=== PATIENT | male | born 1990 | race Caucasian/White ===

== ENCOUNTER 2017-09-21 22:00 | Emergency (ER) | payer OTHER ==
[2017-09-21] MEDS ORDERED: KETOROLAC 30 MG/ML INJ ONE (23:29)
--- NOTE | 2017-09-21 23:47 | EDPHYS ---
Physician Documentation [facility] Name: Bora Nguyen Age: 27 yrs Sex: Male : 1990 Arrival Date: 09/21/2017 Time: 22:01 Bed 27 Private MD: ED Physician Al Mackey HPI: 09/21 22:54 This 27 yrs old Male presents to ER via Ambulatory with complaints of Chest snw Wall Pain. 22:54 Onset: The symptoms/episode began/occurred suddenly, yesterday. Associated signs and snw symptoms: The patient has no apparent associated signs or symptoms. Modifying factors: the patient symptoms are aggravated by movement, heavy lifting. The patient has experienced similar episodes in the past, multiple times. The patient has been recently seen by a physician:. no nausea, syncope, shortness of breath, family history of heart disease. One with aortic stenosis. Historical: - Allergies: 22:12 Peanut; lk1 - PMHx: 22:12 None; lk1 - PSHx: 22:12 None; lk1 - Immunization history:: Adult Immunizations up to date. - Social history:: Smoking status: Patient/guardian denies using tobacco. ROS: 22:54 Constitutional: Negative for fever, chills, and weight loss, Eyes: Negative for injury, snw pain, redness, and discharge, ENT: Negative for injury, pain, and discharge, Neck: Negative for injury, pain, and swelling, Respiratory: Negative for shortness of breath, cough, wheezing, and pleuritic chest pain, Abdomen/GI: Negative for abdominal pain, nausea, vomiting, diarrhea, and constipation, Back: Negative for injury and pain, : Negative for injury, bleeding, discharge, and swelling, MS/Extremity: Negative for injury and deformity, Skin: Negative for injury, rash, and discoloration, Neuro: Negative for headache, weakness, numbness, tingling, and seizure. 22:54 Cardiovascular: Positive for chest pain, of the mid-sternal area, recurrent, always in the same spot, increases with heavy lifting, sudden twisting. Sometimes area pops and it relieves pain.. Exam: 22:54 Constitutional: This is a well developed, well nourished patient who is awake, alert, snw and in no acute distress. Head/Face: Normocephalic, atraumatic. Eyes: Pupils equal round and reactive to light, extra-ocular motions intact. Lids and lashes normal. Conjunctiva and sclera are non-icteric and not injected. Cornea within normal limits. Periorbital areas with no swelling, redness, or edema. ENT: Nares patent. No nasal discharge, no septal abnormalities noted. Tympanic membranes are normal and external auditory canals are clear. Oropharynx with no redness, swelling, or masses, exudates, or evidence of obstruction, uvula midline. Mucous membranes moist. Neck: Trachea midline, no thyromegaly or masses palpated, and no cervical lymphadenopathy. Supple, full range of motion without nuchal rigidity, or vertebral point tenderness. No Meningismus. Chest/axilla: Normal chest wall appearance and motion. Nontender with no deformity. No lesions are appreciated. Cardiovascular: Regular rate and rhythm with a normal S1 and S2. No gallops, murmurs, or rubs. Normal PMI, no JVD. No pulse deficits. Respiratory: Lungs have equal breath sounds bilaterally, clear to auscultation and percussion. No rales, rhonchi or wheezes noted. No increased work of breathing, no retractions or nasal flaring. Abdomen/GI: Soft, non-tender, with normal bowel sounds. No distension or tympany. No guarding or rebound. No evidence of tenderness throughout. Back: No spinal tenderness. No costovertebral tenderness. Full range of motion. Skin: Warm, dry with normal turgor. Normal color with no rashes, no lesions, and no evidence of cellulitis. MS/ Extremity: Pulses equal, no cyanosis. Neurovascular intact. Full, normal range of motion. Neuro: Awake and alert, GCS 15, oriented to person, place, time, and situation. Cranial nerves II-XII grossly intact. Motor strength 5/5 in all extremities. Sensory grossly intact. Cerebellar exam normal. Normal gait. Vital Signs: 22:13 BP 133 / 101; Pulse 70; Resp 16; Temp 98.2(O); Pulse Ox 100% on R/A; Weight 89.36 kg lk1 (R); Height 6 ft. 1 in. (185.42 cm) (R); Pain 5/10; 23:00 BP 127 / 92; Pulse 54; Resp 16; Pulse Ox 100% on R/A; lk1 04/09 00:00 BP 127 / 82; Pulse 57; Resp 15; Pulse Ox 99% on R/A; lk1 09/21 22:13 Body Mass Index 25.99 (89.36 kg, 185.42 cm) lk1 MDM: 09/21 22:24 Patient medically screened. snw 09/22 00:08 Data reviewed: vital signs, nurses notes. Data interpreted: Pulse oximetry: on room air snw is 100 %. Interpretation: normal. Counseling: I had a detailed discussion with the patient and/or guardian regarding: the historical points, exam findings, and any diagnostic results supporting the discharge/admit diagnosis, the presence of at least one elevated blood pressure reading (>120/80) during this emergency department visit, radiology results, the need for outpatient follow up, to return to the emergency department if symptoms worsen or persist or if there are any questions or concerns that arise at home. Special discussion: Based on the history and exam findings, there is no indication for further emergent testing or inpatient evaluation. I discussed with the patient/guardian the need to see the primary care provider for further evaluation of the symptoms. 09/21 22:25 Order name: Chest Pa And Lat (2 Views) XRAY snw 09/21 22:54 Order name: EKG; Complete Time: 22:54 snw 09/21 22:54 Order name: EKG - Nurse/Tech; Complete Time: 23:22 snw Administered Medications: 09/21 23:10 Drug: TORadol 60 mg Route: IM; Site: left gluteus; [facility] 23:40 Follow up: Response: No adverse reaction; Pain is decreased lk1 Disposition: 09/22 01:42 Co-signature as Attending Physician, Al Mackey MD I agree with the assessment and tw4 plan of care. Disposition: 09/21/17 23:46 Discharged to Home. Impression: Chest pain on breathing. - Condition is Stable. - Discharge Instructions: Chest Wall Pain, Costochondritis, Hypertension. - Prescriptions for Diclofenac Sodium 75 mg Oral Tablet Sustained Release - take 1 tablet by ORAL route 2 times per day; 30 tablet. orphenadrine citrate 100 mg Oral Tablet Sustained Release - take 1 tablet by ORAL route 2 times per day As needed; 20 tablet. - Medication Reconciliation Form, Thank You Letter, Antibiotic Education, Prescription Opioid Use form. - Follow up: Private Physician; When: 2 - 3 days; Reason: Recheck today's complaints, Continuance of care, Re-evaluation by your physician. Follow up: Emergency Department; When: As needed; Reason: Worsening of condition. Signatures: Dispatcher [employer] Jodi Mckeon FNP-C FNP-Chery Tenorio, RN RN lk1 Al Mackey MD MD tw4
--- NOTE | 2017-09-21 23:47 | ER ---
Nurse's Notes [facility] Name: Bora Nguyen Age: 27 yrs Sex: Male : 1990 Arrival Date: 09/21/2017 Time: 22:01 Bed 27 Private MD: Diagnosis: Chest pain on breathing Presentation: 09/21 22:10 Presenting complaint: Patient states: "I have had a pain in my sternum since yesterday lk1 and its worse today. This has happened to me numerous times before and I can twist and make it pop and it feels better. Today I can't get it to pop.". Transition of care: patient was not received from another setting of care. Onset of symptoms was September 20, 2017 at 09:00. Care prior to arrival: None. 22:10 Method Of Arrival: Ambulatory lk1 22:10 Acuity: KAILEE 3 lk1 Triage Assessment: 22:12 General: Appears in no apparent distress. Behavior is calm, cooperative, appropriate lk1 for age. Pain: Complains of pain in mid-sternal area Pain does not radiate. Pain currently is 5 out of 10 on a pain scale. Quality of pain is described as sharp, "feels like it just needs to pop" Pain began 2-3 days ago. Is intermittent. EENT: No signs and/or symptoms were reported regarding the EENT system. Neuro: Level of Consciousness is awake, alert, obeys commands, Oriented to person, place, time, situation. Cardiovascular: Heart tones S1 S2 present Capillary refill is brisk Patient's skin is warm and dry. Respiratory: Airway is patent Respiratory effort is even, unlabored, Respiratory pattern is regular, symmetrical, Breath sounds are clear bilaterally. GI: No signs and/or symptoms were reported involving the gastrointestinal system. : No signs and/or symptoms were reported regarding the genitourinary system. Derm: No signs and/or symptoms reported regarding the dermatologic system. Musculoskeletal: Swelling absent. Historical: - Allergies: 22:12 Peanut; lk1 - PMHx: 22:12 None; lk1 - PSHx: 22:12 None; lk1 - Immunization history:: Adult Immunizations up to date. - Social history:: Smoking status: Patient/guardian denies using tobacco. Screenin:16 Abuse screen: Denies threats or abuse. Denies injuries from another. Nutritional lk1 screening: No deficits noted. Tuberculosis screening: No symptoms or risk factors identified. Fall Risk None identified. Assessment: 23:00 Reassessment: Patient and/or family updated on plan of care and expected duration. Pain lk1 level reassessed. Patient is alert, oriented x 3, equal unlabored respirations, skin warm/dry/pink. Patient states feeling better. Pain: Complains of pain in mid-sternal area. Vital Signs: 22:13 BP 133 / 101; Pulse 70; Resp 16; Temp 98.2(O); Pulse Ox 100% on R/A; Weight 89.36 kg lk1 (R); Height 6 ft. 1 in. (185.42 cm) (R); Pain 5/10; 23:00 BP 127 / 92; Pulse 54; Resp 16; Pulse Ox 100% on R/A; lk1 09/22 00:00 BP 127 / 82; Pulse 57; Resp 15; Pulse Ox 99% on R/A; lk1 09/21 22:13 Body Mass Index 25.99 (89.36 kg, 185.42 cm) lk1 ED Course: 09/21 22:01 Patient arrived in ED. es 22:10 Chery Franklin, GRETA is Primary Nurse. lk1 22:11 Triage completed. lk1 22:11 Jodi Cassidy FNP-C is PHCP. snw 22:11 Al Mackey MD is Attending Physician. snw 22:16 Arm band placed on right wrist. lk1 22:36 Chest Pa And Lat (2 Views) XRAY In Process Unspecified. EDMS 04 00:30 Patient has correct armband on for positive identification. Placed in gown. Bed in low lk1 position. Call light in reach. color television console monitor on. Pulse ox on. NIBP on. 00:30 No provider procedures requiring assistance completed. Patient did not have IV access lk1 during this emergency room visit. Patient maintains SpO2 saturation greater than 95% on room air. Administered Medications: 09/21 23:10 Drug: TORadol 60 mg Route: IM; Site: left gluteus; lk1 23:40 Follow up: Response: No adverse reaction; Pain is decreased lk1 Outcome: 23:46 Discharge ordered by . snw 09/22 00:31 Discharged to home ambulatory. lk1 Condition: good Discharge instructions given to patient, Instructed on discharge instructions, follow up and referral plans. medication usage, safety practices, Demonstrated understanding of instructions, follow-up care, medications, Prescriptions given X 2. 00:32 Patient left the ED. lk1 Signatures: Dispatcher [employer] Jodi Mckeon, PRESIDENT SAL[employer]ETING-C [employer] Norma Beard Leah, RN RN lk1
--- NOTE | 2017-09-22 08:36 | RAD REPORT ---
EXAM DESCRIPTION: Karel Reyes (2 Views)09/21/2017 10:40 pm CLINICAL HISTORY: Chest pain COMPARISON: none FINDINGS: The lungs appear clear of acute infiltrate. The heart is normal size IMPRESSION: No acute abnormalities displayed
--- NOTE | 2017-09-22 12:56 | EKG ---
Test Date: 2017-09-21 Test Time: 23:19:39 Label Cutter: AMANDA MEASUREMENT RESULTS: Intervals: Rate: 49 DE: 138 QRSD: 94 QT: 410 QTc: 370 [place]: P: 41 DE: 138 QRS: 70 T: 55 INTERPRETIVE STATEMENTS: Sinus bradycardia Otherwise normal ECG Compared to ECG 07/20/2006 07:39:40 Early repolarization no longer present Electronically Signed On 09-22-17 12:55:51 CDT by Marcellus Valentino
== END 2017-09-22 00:32 | disposition home or self-care (01) ==
LOC: ER 22:00
DX: R07.1 Chest pain on breathing (principal); Z91.010 Allergy to peanuts
CPT/HCPCS: 71046; 93005; 96372; 99285

== ENCOUNTER 2021-04-27 11:14 | Emergency (ER) | payer OTHER ==
--- NOTE | 2021-04-27 11:24 | EDPHYS ---
Physician Documentation [facility] Name: Bora Nguyen Age: 31 yrs Sex: Male : 1990 Arrival Date: 04/27/2021 Time: 11:19 Bed 13 Private MD: ED Physician Buck Reis HPI: 04/27 11:24 This 31 yrs old Male presents to ER via Unassigned with complaints of Foreign kb Body In Ear - qtip. 11:25 The patient or guardian reports the patient has a suspected foreign body, of the ear, kb on the right. The reported likely foreign body is cotton from Q-tip. Onset: The symptoms/episode began/occurred just prior to arrival. Current symptoms: none. Treatment Prior to Arrival: none. The patient has not experienced similar symptoms in the past. The patient has not recently seen a physician. Pt states he was cleaning his ear with a q-tip and when he pulled it out of his ear the cotton was gone so he believes it is still in his ear canal. Historical: - Allergies: 11:26 Peanut; ss ROS: 11:24 Constitutional: Negative for fever, chills, and weight loss. kb 11:24 ENT: Positive for foreign body sensation. 11:24 All other systems are negative. Exam: 11:24 Constitutional: This is a well developed, well nourished patient who is awake, alert, kb and in no acute distress. Head/Face: Normocephalic, atraumatic. ENT: Moist Mucous membranes Respiratory: Respirations even and unlabored. No increased work of breathing, no retractions or nasal flaring. Skin: Warm, dry with normal turgor. Normal color. MS/ Extremity: Pulses equal, no cyanosis. Neurovascular intact. Full, normal range of motion. Neuro: Awake and alert, GCS 15, oriented to person, place, time, and situation. Moves all extremities. Normal gait. Psych: Awake, alert, with orientation to person, place and time. Behavior, mood, and affect are within normal limits. Vital Signs: 11:25 BP 131 / 85; Pulse 65; Resp 16; Temp 98.1(TE); Pulse Ox 100% on R/A; Pain 0/10; ss MDM: 11:20 Patient medically screened. kb 11:23 Data reviewed: vital signs, nurses notes. Data interpreted: Pulse oximetry: on room air kb is 100 %. Interpretation: normal. Counseling: I had a detailed discussion with the patient and/or guardian regarding: the historical points, exam findings, and any diagnostic results supporting the discharge/admit diagnosis, the need for outpatient follow up, a family practitioner, to return to the emergency department if symptoms worsen or persist or if there are any questions or concerns that arise at home. Administered Medications: No medications were administered Disposition: 11:23 Person with feared health complaint in whom no diagnosis is made. kb 14:14 Co-signature as Attending Physician, Buck Reis MD I agree with the assessment and kdr plan of care. Disposition Summary: 04/27/21 11:23 Discharge Ordered Location: Home kb Condition: Stable kb Diagnosis - Encounter for screening, unspecified kb Followup: kb - With: Emergency Department - When: As needed - Reason: Worsening of condition Followup: kb - With: Private Physician - When: 2 - 3 days - Reason: Recheck today's complaints, Continuance of care, Re-evaluation by your physician Forms: - Medication Reconciliation Form kb - Thank You Letter kb - Antibiotic Education kb - Prescription Opioid Use kb Signatures: Za Gutierres, HISTORICAL ARCHEOLOGIST-C ANNA-Buck Cox MD MD kdr Smirch, Shelby, RN RN ss
--- NOTE | 2021-04-27 11:29 | ER ---
Nurse's Notes [facility] Name: Boar Nguyen Age: 31 yrs Sex: Male : 1990 Arrival Date: 04/27/2021 Time: 11:19 Bed 13 Private MD: Diagnosis: Encounter for screening, unspecified Presentation: 04/27 11:25 Chief complaint: Patient states: "I was cleaning my ears and when I took out the Qtip, ss the cotton part wasn't in there." Pt has no complaints at this time. Coronavirus screen: Client denies travel out of the [place] in the last 14 days. Ebola Screen: Patient denies exposure to infectious person. Patient denies travel to an Ebola-affected area in the 21 days before illness onset. Initial Sepsis Screen: Does the patient meet any 2 criteria? No. Patient's initial sepsis screen is negative. Does the patient have a suspected source of infection? No. Patient's initial sepsis screen is negative. Risk Assessment: Do you want to hurt yourself or someone else? Patient reports no desire to harm self or others. Onset of symptoms was April 27, 2021. 11:25 Method Of Arrival: Ambulatory ss 11:25 Acuity: KAILEE 5 ss Historical: - Allergies: 11:26 Peanut; ss Screenin:26 Abuse screen: Denies threats or abuse. Denies injuries from another. Nutritional ss screening: No deficits noted. Tuberculosis screening: Never had TB. Fall Risk None identified. Assessment: 11:26 General: Appears in no apparent distress. comfortable, Behavior is calm. Respiratory: ss Airway is patent Respiratory effort is even, unlabored, Respiratory pattern is regular, symmetrical. Derm: Skin is pink, warm \\T\\ dry. normal. Vital Signs: 11:25 BP 131 / 85; Pulse 65; Resp 16; Temp 98.1(TE); Pulse Ox 100% on R/A; Pain 0/10; ss ED Course: :19 Patient arrived in ED. as 11:20 Za Gutierres FNP-C is PHCP. kb 11:20 Buck Reis MD is Attending Physician. kb 11:20 Kirk Lewis, GRETA is Primary Nurse. jt3 11:26 Triage completed. ss 11:26 Arm band placed on right wrist. ss 11:26 Patient has correct armband on for positive identification. Bed in low position. ss 11:26 No provider procedures requiring assistance completed. Patient did not have IV access ss during this emergency room visit. Administered Medications: No medications were administered Outcome: 11:23 Discharge ordered by . kb 11:26 Medical screen evaluation completed per provider. Patient declined treatment. ss 11:29 Patient left the ED. ss Signatures: Za Gutierres, NATURAL RESOURCES INSTRUCTOR-C NATURAL RESOURCES INSTRUCTOR-Karen Acuna Shelby, RN RN Kirk Lewis RN RN jt3
[2021-04-27 12:01] VITALS: BP 131/85; TEMP 98.1; O2SAT 100
== END 2021-04-27 11:29 | disposition home or self-care (01) ==
LOC: ER 11:14
DX: Z71.1 Person with feared health complaint in whom no diagnosis is made (principal)
CPT/HCPCS: 99281

== ENCOUNTER 2022-01-14 08:59 | Emergency (ER) | payer OTHER ==
[2022-01-14 09:36] LABS: Urine Blood Negative (Negative); Urine Glucose Negative (Negative); Urine Protein Trace (Negative); Urine pH 8.5 (5.0-7.0)
[2022-01-14] MEDS ORDERED: ACETAMINOPHEN 500 MG TAB ONE (09:44)
[2022-01-14] MEDS ORDERED: IBUPROFEN 400 MG TAB ONE (09:45)
[2022-01-14 12:38] VITALS: BP 106/64; TEMP 101.3; O2SAT 98
--- NOTE | 2022-01-16 09:25 | ER ---
Nurse's Notes [facility] Name: Bora Nguyen Age: 31 yrs Sex: Male : 1990 Arrival Date: 01/14/2022 Time: 09: Bed 4 Private MD: Diagnosis: Coronavirus infection, unspecified Presentation: 01/14 09:14 Chief complaint: Patient states: pt presented to ed reporting dizziness, body aches, castaneda chills, shakes since this morning. Coronavirus screen: Vaccine status: Patient reports being unvaccinated. Ebola Screen: Patient denies travel to an Ebola-affected area in the 21 days before illness onset. Initial Sepsis Screen: Does the patient meet any 2 criteria? RR > 20 per min. HR > 90 bpm. Yes Does the patient have a suspected source of infection? No. Patient's initial sepsis screen is negative. Risk Assessment: Do you want to hurt yourself or someone else? Patient reports no desire to harm self or others. Onset of symptoms was January 14, 2022. 09:14 Method Of Arrival: Ambulatory castaneda 09:14 Acuity: KAILEE 2 castaneda Historical: - Allergies: 09:17 Peanut; castaneda - Home Meds: 09:17 None [Active]; castaneda - PSHx: 09:17 None; castaneda - Immunization history:: Adult Immunizations up to date. - Social history:: Smoking status: Patient denies any tobacco usage or history of. Screenin:32 Abuse screen: Denies threats or abuse. Nutritional screening: No deficits noted. tp1 Tuberculosis screening: No symptoms or risk factors identified. Fall Risk No fall in past 12 months (0 pts). No IV (0 pts). Ambulatory Aid- None/Bed Rest/Nurse Assist (0 pts). Gait- Normal/Bed Rest/Wheelchair (0 pts) Mental Status- Oriented to own ability (0 pts). Assessment: 09:39 General: Appears in no apparent distress. uncomfortable, Behavior is calm, cooperative, tp1 Reports chills for since this morning. Pain: Complains of pain in general body ach Pain does not radiate. Pain currently is 0 out of 10 on a pain scale. at worst was 8 out of 10 on a pain scale. Quality of pain is described as aching, crampy, Pain began this morning. Neuro: Level of Consciousness is awake, alert, obeys commands, Oriented to person, place, time, situation, Reports dizziness, weakness. Cardiovascular: Patient's skin is warm and dry. Respiratory: Reports shortness of breath Airway is patent Respiratory effort is even, unlabored. GI: Abdomen is flat, non-distended, Reports nausea, Patient currently denies diarrhea, vomiting. : No signs and/or symptoms were reported regarding the genitourinary system. EENT: No signs and/or symptoms were reported regarding the EENT system. Reports nasal congestion since yesterday. Derm: Skin is pink, warm \\T\\ dry. Musculoskeletal: Circulation, motion, and sensation intact. 09:39 Reassessment: educated on fever and need to keep blankets off. tp1 09:50 Reassessment: notified provider of nausea. tp1 10:39 Reassessment: Patient appears in no apparent distress at this time. Patient and/or tp1 family updated on plan of care and expected duration. Pain level reassessed. Patient is alert, oriented x 3, equal unlabored respirations, skin warm/dry/pink. states "feeling a little better", chills have decreased but continuing to CO body ache. 11:53 Reassessment: Patient appears in no apparent distress at this time. No changes from tp1 previously documented assessment. Patient and/or family updated on plan of care and expected duration. Pain level reassessed. Patient is alert, oriented x 3, equal unlabored respirations, skin warm/dry/pink. Vital Signs: 09:14 BP 119 / 74; Pulse 112; Resp 22; Temp 100.2(T); Pulse Ox 100% on R/A; Weight 88.45 kg; castaneda Height 6 ft. 1 in. (185.42 cm); 09:46 BP 112 / 64; Pulse 114; Resp 18; Temp 101.8; Pulse Ox 100% on R/A; tp1 10:37 BP 113 / 54; Pulse 105; Resp 16; Pulse Ox 97% on R/A; vg1 11:50 BP 106 / 64; Pulse 115; Resp 16; Temp 101.3; Pulse Ox 98% on R/A; tp1 09:14 Body Mass Index 25.73 (88.45 kg, 185.42 cm) ED Course: 09:01 Patient arrived in ED. am2 09:04 Tho Palm PA is PHCP. [facility] 09:04 Bora Flores MD is Attending Physician. [facility] 09:17 Triage completed. castaneda 09:22 Meena Vicente RN is Primary Nurse. vg1 09:38 Urine collected: clean catch specimen, clear. tp1 09:39 SARS-COV-2 RT PCR (Document "Date of Onset" if Symptomatic) Sent. ph 09:46 Bed in low position. Call light in reach. educated to ask fro assistance with tp1 ambulation. Pulse ox on. NIBP on. 09:48 Door closed. Noise minimized. tp1 10:07 Primary Nurse role handed off by Meena Vicente RN tp1 10:07 Brunilda Navarro RN is Primary Nurse. tp1 12:24 No provider procedures requiring assistance completed. Patient did not have IV access ap3 during this emergency room visit. 12:24 Arm band placed on right wrist. ap3 Administered Medications: 09:39 Drug: Motrin (ibuprofen) 400 mg Route: PO; vg1 11:54 Follow up: Response: Temperature is unchanged tp1 09:39 Drug: Acetaminophen 1000 mg Route: PO; vg1 11:54 Follow up: Response: Temperature is unchanged tp1 Medication: 12:24 VIS not applicable for this client. ap3 Outcome: 12:16 Discharge ordered by . [facility] 12:24 Discharged to home ambulatory. ap3 12:24 Condition: good 12:24 Discharge instructions given to patient, Instructed on discharge instructions, follow up and referral plans. Demonstrated understanding of instructions, follow-up care. 12:24 Patient left the ED. ap3 Signatures: Tho Palm PA PA [facility] Guera Longo RN RN Joleen Mulligan am2 Joleen Zee RN RN ap3 Meena Vicente RN RN vg1 Brunilda Navarro RN RN 1 Maite Willis RN RN Corrections: (The following items were deleted from the chart) :46 09:39 General: Appears in no apparent distress. uncomfortable, Behavior is calm, tp1 cooperative, tp1 :46 09:39 Neuro: Level of Consciousness is awake, alert, obeys commands, Oriented to tp1 person, place, time, situation, tp1 :46 09:39 EENT: No signs and/or symptoms were reported regarding the EENT system. tp1 tp1 09:46 09:39 Derm: Skin is pink, warm \\T\\ dry. tp1 tp1 09:51 09:39 General: tp1 tp1 10:06 09:46 Bed in low position. Call light in reach. Side rails up X2. educated to ask fro tp1 assistance with ambulation tp1
--- NOTE | 2022-01-16 09:25 | EDPHYS ---
Physician Documentation [facility] Name: Bora Nguyen Age: 31 yrs Sex: Male : 1990 Arrival Date: 01/14/2022 Time: : Bed 4 Private MD: ED Physician Bora Flores HPI: 01/14 09:22 This 31 yrs old Male presents to ER via Ambulatory with complaints of bodyaches, jmm Dizziness. 09:22 The patient or guardian reports cough. Onset: The symptoms/episode began/occurred jmm gradually, today. Modifying factors: The symptoms are alleviated by nothing. the symptoms are aggravated by nothing. This is a 31-year-old male with no chronic medical conditions the presents emerged part with complaints of congestion, body aches, weakness, fatigue beginning today. Multiple family members have similar illness. Denies vomiting or diarrhea. Historical: - Allergies: 09:17 Peanut; castaneda - Home Meds: 09:17 None [Active]; castaneda - PSHx: :17 None; castaneda - Immunization history:: Adult Immunizations up to date. - Social history:: Smoking status: Patient denies any tobacco usage or history of. ROS: 09:22 Constitutional: Positive for body aches, chills. jmm 09:22 ENT: Positive for sinus congestion. 09:22 Respiratory: Positive for cough. 09:22 All other systems are negative. Exam: 09:22 Constitutional: This is a well developed, well nourished patient who is awake, alert, jmm and in no acute distress. Head/Face: atraumatic. Eyes: EOMI, no conjunctival erythema appreciated 09:22 Neck: Trachea midline, Supple Chest/axilla: Normal chest wall appearance and motion. Cardiovascular: Regular rate and rhythm. No edema appreciated Respiratory: Normal respirations, no respiratory distress appreciated Abdomen/GI: Non distended Back: Normal ROM Skin: General appearance color normal MS/ Extremity: Moves all extremities, no obvious deformities appreciated, no edema noted to the lower extremities Neuro: Awake and alert Psych: Behavior is normal, Mood is normal, Patient is cooperative and pleasant 09:22 ENT: Posterior pharynx: erythema, that is mild. Vital Signs: 09:14 BP 119 / 74; Pulse 112; Resp 22; Temp 100.2(T); Pulse Ox 100% on R/A; Weight 88.45 kg; castaneda Height 6 ft. 1 in. (185.42 cm); 09:46 BP 112 / 64; Pulse 114; Resp 18; Temp 101.8; Pulse Ox 100% on R/A; tp1 10:37 BP 113 / 54; Pulse 105; Resp 16; Pulse Ox 97% on R/A; vg1 11:50 BP 106 / 64; Pulse 115; Resp 16; Temp 101.3; Pulse Ox 98% on R/A; tp1 09:14 Body Mass Index 25.73 (88.45 kg, 185.42 cm) castaneda MDM: 09:22 Patient medically screened. [facility] 12:15 Data reviewed: vital signs, nurses notes. Counseling: I had a detailed discussion with [facility] the patient and/or guardian regarding: the historical points, exam findings, and any diagnostic results supporting the discharge/admit diagnosis, the need for outpatient follow up, to return to the emergency department if symptoms worsen or persist or if there are any questions or concerns that arise at home. ED course: Patient is alert and nontoxic in appearance in the ED. No signs of respiratory distress. Patient advised to follow-up with PCP and otherwise given strict return precautions. Patient understood agrees plan of care.. 01/14 09:23 Order name: SARS-COV-2 RT PCR (Document "Date of Onset" if Symptomatic); Complete Time: [facility] 12:18 01/14 09:23 Order name: Influenza Screen (a \\T\\ B); Complete Time: 11:04 [facility] 01/14 09:23 Order name: Urine Dipstick-Ancillary (obtain specimen); Complete Time: 09:39 [facility] 01/14 09:36 Order name: Urine Dipstick-Ancillary; Complete Time: 09:39 EDMS Administered Medications: 09:39 Drug: Motrin (ibuprofen) 400 mg Route: PO; vg1 11:54 Follow up: Response: Temperature is unchanged tp1 09:39 Drug: Acetaminophen 1000 mg Route: PO; vg1 11:54 Follow up: Response: Temperature is unchanged tp1 Disposition: 16:15 Co-signature as Attending Physician, Bora Flores MD. rn Disposition Summary: 01/14/22 12:16 Discharge Ordered Location: Home [facility] Condition: Stable [facility] Diagnosis - Coronavirus infection, unspecified [facility] Followup: jmm - With: Private Physician - When: 2 - 3 days - Reason: Recheck today's complaints, Continuance of care, Re-evaluation by your physician Discharge Instructions: - Discharge Summary Sheet ammy - COVID-19 ammy Forms: - Medication Reconciliation Form ammy - Thank You Letter ammy - Antibiotic Education ammy - Prescription Opioid Use ammy Signatures: Dispatcher [employer] EDTho Knight PA PA jmm Nieto, Roman, MD MD rn Garcia, Victoria RN RN vg1 Maite Willis RN RN ha Parker, Tiffany RN tp1
== END 2022-01-14 12:24 | disposition home or self-care (01) ==
LOC: ER 08:59
DX: U07.1 COVID-19 (principal); Z91.010 Allergy to peanuts
CPT/HCPCS: 81003; 87804 ×2; U0003; 99284